=== PATIENT | male | born 1985 | race Caucasian/White ===

== ENCOUNTER 2019-07-05 12:05 | Emergency (ER) | payer OTHER ==
[~2019-07-05] VITALS: Ht 190.5 cm; Wt 99.8 kg
[2019-07-05 13:27] LABS: ABSOLUTE NEUTROPHILS 7.3 thou/uL (1.4-8.2); BASOPHILS 0.7 % (0.0-2.0); EOSINOPHILS 0.1 % (0.0-3.0); HEMOGLOBIN 15.2 gm/dL (14.0-18.0); MCH 30.4 pg (26.0-34.0); MCHC 35.5 g/dL (28.0-37.0); MCV 85.7 fL (80.0-100.0); MONOCYTES 8.8 % (1.0-8.0); PLATELET COUNT 225 thou/uL (150-400); POLYS 70.4 % (36.0-66.0); RBC 5.02 mil/uL (4.50-6.00); WBC 10.3 thou/uL (4.0-11.0)
[2019-07-05 13:31] LABS: ANION GAP 19 mmol/L (7-16); BUN 11 mg/dL (7-18); CALCIUM 9.8 mg/dL (8.5-10.1); CHLORIDE 98 mmol/L (98-107); CO2 18 mmol/L (21-32); CREATININE 1.4 mg/dL (0.7-1.3); GLUCOSE 111 mg/dL (74-106); POTASSIUM 3.2 mmol/L (3.5-5.1); SODIUM 135 mmol/L (136-145)
[2019-07-05 13:42] LABS: ALBUMIN 4.3 g/dL (3.4-5.0); MAGNESIUM 1.6 mg/dL (1.8-2.4); SGOT 23 U/L (15-37); SGPT 27 U/L (30-65); TOTAL BILIRUBIN 1.2 mg/dL (<0.1-1.0); TOTAL PROTEIN 7.9 g/dL (6.4-8.2); TROPONIN-I <0.06 ng/mL (<0.06)
[2019-07-05 13:47] LABS: AMP/METHAMP Negative (Negative); BARBITURATES Negative (Negative); BENZODIAZEPINES Negative (Negative); COCAINE POSITIVE (Negative); METHADONE Negative (Negative); OPIATES Negative (Negative); PCP Negative (Negative)
[2019-07-05 13:49] LABS: APTT 28.5 Seconds (24.5-32.8); PROTIME 10.1 Seconds (9.3-11.4)
[2019-07-05 14:26] VITALS: BP 123/82
--- NOTE | 2019-07-06 07:51 | EKG ---
[facility] [place] [address] ELECTROCARDIOGRAM REPORT Name: THONG ZAMORA Room [id number] ������������������ Admission: 07/05/19 ������������������ Attend Phys: Discharge: 07/05/19 ������������������ Date of : 89 Report #: [id number] ����������������������������������������������������������������� [id number] THIS REPORT FOR: //name// [facility] ED Test Date: 2019-07-05 Test Time: 12:13:06 Pat Name: THONG ZAMORA Department: Room: Gender: [employer] Mechanic: JOANA : 1985 Requested By: Tigre Paredes Order Number: [id number] MD: Terry France Measurements Intervals [place] Rate: 123 P: 70 WA: 157 QRS: 78 QRSD: 96 T: -27 QT: 300 QTc: 429 Interpretive Statements Sinus tachycardia Poor R wave progression Nonspecific ST and T wave abnormality No previous ECG available for comparison Electronically Signed On 07-06-2019 7:51:21 CDT by Terry France [email or web address] ��������������������������������������������� <ELECTRONICALLY SIGNED> ���������������������������������������� By: Terry France MD, [facility] ��������������������������������������������� 07/06/19 0751 1213 1213 Terry France MD, FACC /EPI
== END 2019-07-05 14:15 | disposition home or self-care (01) ==
LOC: ER 12:05
PROVIDERS: Emergency Medicine
DX: T40.5X2A Poisoning by cocaine, intentional self-harm, initial encounter (principal); E87.6 Hypokalemia; E83.42 Hypomagnesemia; R42 Dizziness and giddiness; Y92.89 Other specified places as the place of occurrence of the external cause